=== PATIENT | female | born 1980 | race Caucasian/White ===

== ENCOUNTER → 2024-01-01 08:43 | Outpatient (REF) | payer OTHER, SELFPAY | LOC: HWRAD 08:43 | PROVIDERS: ATTENDING PHYSICIAN Obstetrics & Gynecology; FAMILY PHYSICIAN Emergency Medicine | DX: Z12.31 Encounter for screening mammogram for malignant neoplasm of breast (principal); N93.9 Abnormal uterine and vaginal bleeding, unspecified | CPT/HCPCS: 76830; 76856; 77063; 77067 ==

== ENCOUNTER 2024-03-04 14:29 | Emergency (ER) | payer OTHER, SELFPAY ==
[2024-03-04 14:35] VITALS: BP 152/85
[2024-03-04 14:56] LABS: % Basophils 0.3 % (0-2); % Eosinophils 1.1 % (0-6); % Immature Granulocytes 0.3 % (0-0.5); % Lymphocytes 14.3 % (20.5-51.1); % Monocytes 7.5 % (1.7-9.3); % Neutrophils 76.5 % (42.2-75.2); Absolute Eosinophils 0.1 10^3/uL (0-0.7); Absolute Lymphocytes 1.6 10^3/uL (1.2-3.4); Absolute Monocytes 0.9 10^3/uL (0.1-0.6); Absolute Neutrophils 8.8 10^3/uL (1.4-6.5); Hematocrit 38.9 % (37.0-47.0); Hemoglobin 12.9 g/dL (12.0-16.0); Mean Corp Hgb Conc. 33.2 g/dL (33.0-37.0); Mean Corpuscular Hgb 27.9 pg (27.0-31.0); Mean Platelet Volume 11.8 fL (7.4-10.4); Nucleated Red Blood Cells % 0 %; Platelet Count 322 10^3/uL (130-400); Red Blood Cell Count 4.63 10^6/uL (4.20-5.40); Red Cell Dist. Width 13.2 % (11.5-14.5); White Blood Cell Count 11.5 10^3/uL (4.8-10.8)
[2024-03-04 15:12] LABS: HCG, Serum Qualitative Screen Negative
[2024-03-04 15:19] LABS: ALT (SGPT) 13 U/L (0-35); AST (SGOT) 22 U/L (14-36); Albumin 4.3 g/dl (3.5-5.0); Alkaline Phosphatase 53 U/L (38-126); Blood Urea Nitrogen 13 mg/dl (7-17); Calcium 9.6 mg/dl (8.4-10.2); Carbon Dioxide 27 mmol/L (22-30); Chloride 105 mmol/L (98-107); Glucose 126 mg/dl (70-99); Sodium 138 mmol/L (135-145); Total Bilirubin 0.3 mg/dl (0.2-1.3); Total Protein 7.5 g/dl (6.3-8.2); eGFR > 60.00
--- NOTE | 2024-03-04 18:11 | ED.GENMED ---
History of Present Illness
General
Chief Complaint: Bowel Problem
Time Seen by Provider: 03/04/24 17:15
Travel History
Have you had any contact with someone who has COVID-19?: No
Do you have any symptoms of coronavirus? Fever > 100 degrees, chills, cough, shortness of breath, sore throat, loss of taste or smell, muscle aches, or headache?: No
History of Present Illness
History of Present Illness:
43-year-old female presents to the emergency department for evaluation of constipation. States she has not had a bowel movement in 3 to 4 days. Has tried enemas as well as MiraLAX and stool softeners without relief. She did take a dose of
approximate 1 g of magnesium which allowed her to have a small caliber stool test this morning as well as flatus but she has been having increasing lower abdominal colicky pain since then. Denies any hematochezia or melena. No fevers chills or
sweats.
Review of Systems
Review of Systems
Allergies reviewed?: Yes
All Other Systems: ROS reviewed and negative except as documented in HPI and ROS
Phy Exam
Physical Exam
Physical Exam:
GEN: Well appearing, NAD, WDWN
HEENT: Oral mucosa moist, no scleral icterus
Cardiac: Regular rate
Lung: No respiratory distress, no tachypnea
Abdomen: Soft, nontender, nonrigid
MSK: No gross deformity or injuries
Skin: Good color, no pallor or jaundice, no rashes
Neuro: AO x3, moves all extremities freely
Psych: Calm, cooperative
Course
Orders/Labs/Results
Orders:
Orders
03/04/24 14:42
Test Result ONCE
03/04/24 14:46
Complete Blood Count/With Diff Urgent
Comprehensive Metabolic Panel Urgent
HCG, Serum Qualitative Screen Urgent
03/04/24 17:58
CR Obstruct Series W/pa Chest Urgent
Comment:
Reason For Exam: constipation
03/04/24 18:36
Magnesium Citrate [Citroma] 300 ml PO ONCE ONE
Abnormal Lab Results
03/04/24
14:46
WBC 11.5 H 10^3/uL
(4.8-10.8)
MPV 11.8 H fL
(7.4-10.4)
Absolute Neuts (auto) 8.8 H 10^3/uL
(1.4-6.5)
Absolute Monos (auto) 0.9 H 10^3/uL
(0.1-0.6)
Neutrophils % 76.5 H %
(42.2-75.2)
Lymphocytes % 14.3 L %
(20.5-51.1)
Glucose 126 H mg/dl
(70-99)
03/04/24 14:46
03/04/24 14:46
Vital Signs
Initial and Last Documented VS:
Initial Vital Signs
Temp Pulse Resp BP Pulse Ox
98.9 F 99 18 152/85 100
03/04/24 14:35 03/04/24 14:35 03/04/24 14:35 03/04/24 14:35 03/04/24 14:35
Last Documented Vital Signs
Temp Pulse Resp BP Pulse Ox
98.9 F 89 20 110/64 99
03/04/24 14:35 03/04/24 18:45 03/04/24 18:45 03/04/24 18:45 03/04/24 18:45
MDM/Problems Addressed
MDM/Problems Addressed:
Labs are unremarkable, x-ray shows no evidence for bowel obstructive pathology. Large volume colonic stool. Patient provided with magnesium citrate and educated on MiraLAX bowel prep if symptoms worsen. No indication for CT
*Critical Care Note
Total Time (30-74mins, 75-104mins- exclusive of procedures): Not Applicable
ED Attending Note
-
Portions of this chart may have been created with voice recognition software.� Occasional wrong word or��sound alike� substitutions may have occurred due to the inherent limitations of voice recognition software.
Discharge Plan
Departure
Patient Disposition: Home (Routine Discharge)
Date of Disposition: 03/04/24
Time of Disposition: 18:36
Patient with high blood pressure during this ER visit?: No
Discharge Problem:
Constipation
Instructions: Constipation, Adult (DC)
Activity Restrictions/Additional Instructions:
If the magnesium citrate does not work please follow the below instructions for a MiraLAX bowel prep
Mix a full 238 g bottle of MiraLAX and 2 to 32 ounce bottles of clear liquid of your choice. Prior to starting take 2 [id number] Dulcolax tablets and consume the liquid mixture over approximately 8 to 12 hours, at the completion of the liquid
take another 2 Dulcolax
Interventions
Interventions:
*Risk Screen - Suicide Last Done: 03/04/24 18:50
*General Assessment Last Done: 03/04/24 18:50
*Neglect/Abuse Screening Last Done: 03/04/24 18:50
ED- Fall Risk Assessment Last Done: 03/04/24 18:50
*ED COVID-19 Vaccine History Last Done: 03/04/24 14:35
*Nursing Disposition Last Done: 03/04/24 18:50
[place]-[facility]-Rebmumiq[facility] Assessment Last Done: 03/04/24 18:50
Discharge Date and Time
Discharge Date/Time: 03/04/24 18:50
Print Language: MEXICAN
[2024-03-04 18:45] VITALS: BP 110/64
[2024-03-04] MEDS: CITROMA 300 ML PO (18:49)
[2024-03-04 19:26] VITALS: BP 110/64
== END 2024-03-04 18:50 | disposition home or self-care (01) ==
LOC: EMR 14:29
PROVIDERS: Emergency Medicine; EMERGENCY PHYSICIAN Student in an Organized Health Care Education/Training Program; FAMILY PHYSICIAN Emergency Medicine
DX: K59.00 Constipation, unspecified (principal); R10.30 Lower abdominal pain, unspecified
CPT/HCPCS: 99283; 74022; 80053; 84703; 85025